=== PATIENT | female | born 1955 | race Caucasian/White ===

== ENCOUNTER → 2016-12-07 | Outpatient (CLI) | payer MEDICARE ==
[~2016-12-07] MED LIST: ABILIFY2 MG PO; ACCUPRIL TAB 5MG5 MG PO; ASPIRIN325 MG PO; CHANTIX1 EACH PO; CITALOPRAM HBR20 MG PO; EFFEXOR XR75 MG PO; IMDUR ER TAB 6060 MG PO; IPRAT-ALBUT 0.5-3 ML INH; KLONOPIN TAB 00.5 MG PO; LOPRESSOR50 MG PO; LYRICA75 MG PO; MOBIC15 MG PO; NEXIUM40 MG PO; NITROGLYCERIN0.4 MG SL; OMNICEF 300 MG300 MG PO; PRAVACHOL80 MG PO; PROAIR HFA8.5 GM INH; SYNTHROID75 MCG PO
== END ==
LOC: EMI 12-04 07:30
DX: M54.16 Radiculopathy, lumbar region (principal); M51.26 Other intervertebral disc displacement, lumbar region
CPT/HCPCS: 72148

== ENCOUNTER 2016-12-26 16:08 | Inpatient (IN) | payer MEDICARE, MEDICAID ==
[~2016-12-26] VITALS: Ht 154.9 cm; Wt 77.1 kg
[2016-12-26 18:49] LABS: HEMOGLOBIN 14.4 gm/dl (12.3-15.3); RED BLOOD COUNT 4.94 M/UL (4.00-5.10); WHITE BLOOD COUNT 6.2 K/UL (4.5-11.0)
[2016-12-26 19:37] LABS: BUN/CREATININE RATIO 28 (0-10)
[2016-12-27 05:49] LABS: HEMOGLOBIN 14.2 gm/dl (12.3-15.3); RED BLOOD COUNT 4.97 M/UL (4.00-5.10); WHITE BLOOD COUNT 6.1 K/UL (4.5-11.0)
[2016-12-27 06:09] LABS: BUN/CREATININE RATIO 38 (0-10)
[2016-12-27] MEDS ORDERED: ABILIFY2 MG PO (15:03)
[2016-12-27] MEDS ORDERED: KLONOPIN TAB 00.5 MG PO (15:03)
[2016-12-27] MEDS ORDERED: SYNTHROID75 MCG PO (15:04)
[2016-12-27] MEDS ORDERED: CITALOPRAM HBR20 MG PO (15:05)
[2016-12-27] MEDS ORDERED: NEXIUM40 MG PO (15:05)
[2016-12-27] MEDS ORDERED: EFFEXOR XR75 MG PO (15:06)
[2016-12-27] MEDS ORDERED: IMDUR ER TAB 6060 MG PO (15:06)
[2016-12-27] MEDS ORDERED: PRAVACHOL80 MG PO (15:07)
[2016-12-27] MEDS ORDERED: MOBIC15 MG PO (15:07)
[2016-12-27] MEDS ORDERED: LYRICA75 MG PO (15:07)
[2016-12-27] MEDS ORDERED: LOPRESSOR50 MG PO (15:09)
[2016-12-27] MEDS ORDERED: PROAIR HFA8.5 GM INH (15:10)
[2016-12-27] MEDS ORDERED: ASPIRIN325 MG PO (15:10)
[2016-12-27] MEDS ORDERED: NITROGLYCERIN0.4 MG SL (15:11)
[2016-12-28 06:07] LABS: HEMOGLOBIN 13.7 gm/dl (12.3-15.3); RED BLOOD COUNT 4.78 M/UL (4.00-5.10)
[2016-12-28 06:15] LABS: WHITE BLOOD COUNT 8.4 K/UL (4.5-11.0)
[2016-12-28 06:31] LABS: BUN/CREATININE RATIO 34 (0-10)
[2016-12-28] MEDS ORDERED: ACCUPRIL TAB 5MG5 MG PO (12:17)
[2016-12-28] MEDS ORDERED: OMNICEF 300 MG300 MG PO (12:18)
[2016-12-28] MEDS ORDERED: IPRAT-ALBUT 0.5-3 ML INH (13:08)
[2016-12-28] MEDS ORDERED: CHANTIX1 EACH PO (13:14)
== END 2016-12-28 11:00 | disposition home or self-care (01) | DRG 191 ==
LOC: ER1 16:08 → ZEROF 22:37 → M/S 23:33 → ZEROF 23:33 → M/S 12-27 09:39
PROVIDERS: Family Medicine; ADMIT Internal Medicine
DX: J44.0 Chronic obstructive pulmonary disease with (acute) lower respiratory infection (principal); J45.901 Unspecified asthma with (acute) exacerbation; I25.110 Atherosclerotic heart disease of native coronary artery with unstable angina pectoris; J98.11 Atelectasis; J20.9 Acute bronchitis, unspecified; I10 Essential (primary) hypertension; E11.9 Type 2 diabetes mellitus without complications; E03.9 Hypothyroidism, unspecified; G25.0 Essential tremor; E78.5 Hyperlipidemia, unspecified; K21.9 Gastro-esophageal reflux disease without esophagitis; G47.33 Obstructive sleep apnea (adult) (pediatric); M16.0 Bilateral primary osteoarthritis of hip; M17.0 Bilateral primary osteoarthritis of knee; G89.29 Other chronic pain; M54.9 Dorsalgia, unspecified; E66.9 Obesity, unspecified; F32.9 Major depressive disorder, single episode, unspecified; F41.9 Anxiety disorder, unspecified; Z95.1 Presence of aortocoronary bypass graft; Z87.891 Personal history of nicotine dependence; Z86.73 Personal history of transient ischemic attack (TIA), and cerebral infarction without residual deficits; Z68.32 Body mass index [BMI] 32.0-32.9, adult; Z79.82 Long term (current) use of aspirin; Z79.1 Long term (current) use of non-steroidal anti-inflammatories (NSAID); Z79.899 Other long term (current) drug therapy; Z88.3 Allergy status to other anti-infective agents; Z88.2 Allergy status to sulfonamides; Z90.49 Acquired absence of other specified parts of digestive tract; Z98.51 Tubal ligation status; Z98.49 Cataract extraction status, unspecified eye; Z98.890 Other specified postprocedural states; Z82.49 Family history of ischemic heart disease and other diseases of the circulatory system; Z83.3 Family history of diabetes mellitus; Z80.3 Family history of malignant neoplasm of breast
CPT/HCPCS: ECHO; 36415; 71010; 78452; 80048; 80053; 80061; 82550; 82553; 82962; 83874; 83880; 84484; 85025; 93005; 93017; 93306; 94640; 94664; 96374; 96375; 99285; A9502; G0378; J0456; J0696; J2785; J7030; J7050

== ENCOUNTER → 2020-11-22 | Outpatient (CLI) | payer MEDICARE ==
[~2020-11-22] MED LIST changes: +AMBIEN10 MG PO; +ASPIR 8181 MG PO; +AUGMENTIN 875-1 EACH PO; +AZELASTINE HCL6 ML EYEBOTH; +BACTROBAN OINT22 GM EXT; +BUSPAR 10MG10 MG PO; +EFFEXOR XR150 MG PO; -EFFEXOR XR75 MG PO; +FLEXERIL 10 MG10 MG PO; +FLOMAX 0.4 MG0.4 MG PO; +FLOMAX0.4 MG PO; +HYDROCODON-ACE1 EAC4 PO; +IBUPROFEN400 MG PO; +IBUPROFEN600 MG PO; +LYRICA150 MG PO; -LYRICA75 MG PO; +NORCO 5-325 TA1 EACH PO; +PREDNISONE DOSE PACK; +SINGULAIR10 MG PO; -SYNTHROID75 MCG PO; +SYNTHROID88 MCG PO; +TORADOL 10 MG T10 MG PO; +VITAMIN D250000 UNIT PO; +ZOFRAN ODT 4 MG4 MG SL; +ZOFRAN ODT4 MG PO
== END ==
LOC: KOH-I 09-23 13:00
DX: R91.8 Other nonspecific abnormal finding of lung field (principal); R91.1 Solitary pulmonary nodule
CPT/HCPCS: 71250

== ENCOUNTER → 2020-12-29 | Outpatient (CLI) | payer MEDICARE, OTHER | LOC: HEART 5 08:30 | DX: I20.9 Angina pectoris, unspecified (principal); I07.1 Rheumatic tricuspid insufficiency; I27.20 Pulmonary hypertension, unspecified; Z95.1 Presence of aortocoronary bypass graft | CPT/HCPCS: 93306 ==

== ENCOUNTER → 2021-01-02 | Outpatient (CLI) | payer MEDICARE, OTHER | LOC: HEART 5 08:14 | DX: I20.9 Angina pectoris, unspecified (principal) | CPT/HCPCS: 78452; A9502; J2785 ==

== ENCOUNTER 2021-02-12 19:13 | Emergency (ER) | payer MEDICARE, OTHER ==
[~2021-02-12 19:13] MED LIST changes: -FLOMAX 0.4 MG0.4 MG PO; -HYDROCODON-ACE1 EAC4 PO; -ZOFRAN ODT 4 MG4 MG SL
[2021-02-12 20:13] LABS: HEMOGLOBIN 12.5 gm/dl (12.3-15.3); RED BLOOD COUNT 5.3 M/UL (4.00-5.10); WHITE BLOOD COUNT 11.5 K/UL (4.5-11.0)
[2021-02-12 20:37] LABS: BUN/CREATININE RATIO 23 (0-10)
[2021-02-12] MEDS ORDERED: HYDROCODON-ACE1 EAC4 PO (20:59)
[2021-02-12] MEDS ORDERED: ZOFRAN ODT 4 MG4 MG SL (20:59)
[2021-02-12] MEDS ORDERED: TORADOL 10 MG T10 MG PO (20:59)
[2021-02-12] MEDS ORDERED: FLOMAX 0.4 MG0.4 MG PO (20:59)
== END 2021-02-12 21:34 | disposition home or self-care (01) ==
LOC: ER1 19:13
PROVIDERS: Emergency Medicine
DX: N13.2 Hydronephrosis with renal and ureteral calculous obstruction (principal); E11.9 Type 2 diabetes mellitus without complications; I10 Essential (primary) hypertension; F17.200 Nicotine dependence, unspecified, uncomplicated; Z87.442 Personal history of urinary calculi; Z95.1 Presence of aortocoronary bypass graft; Z90.49 Acquired absence of other specified parts of digestive tract; Z88.1 Allergy status to other antibiotic agents
CPT/HCPCS: 80053; 83690; 85025; 87086; 96374; 96375; 99284; J1885; J2270; J2405; J7030

== ENCOUNTER → 2021-04-21 | Outpatient (CLI) | payer MEDICARE, OTHER ==
[~2021-04-21] MED LIST changes: +FLOMAX 0.4 MG0.4 MG PO; +HYDROCODON-ACE1 EAC4 PO; +ZOFRAN ODT 4 MG4 MG SL
== END ==
LOC: KOH-I 10:40
DX: J44.1 Chronic obstructive pulmonary disease with (acute) exacerbation (principal)
CPT/HCPCS: 71046

== ENCOUNTER → 2021-05-25 | Outpatient (CLI) | payer MEDICARE, OTHER | LOC: KOH-I 11:12 | DX: R91.1 Solitary pulmonary nodule (principal); K44.9 Diaphragmatic hernia without obstruction or gangrene | CPT/HCPCS: 71250 ==

== ENCOUNTER → 2021-10-05 | Outpatient (CLI) | payer MEDICARE, OTHER | LOC: MAMO 14:00 | DX: Z12.31 Encounter for screening mammogram for malignant neoplasm of breast (principal) | CPT/HCPCS: 77063; 77067 ==

== ENCOUNTER → 2022-02-19 | Outpatient (CLI) | payer MEDICARE, OTHER | LOC: US 07:52 | DX: R55 Syncope and collapse (principal); G45.9 Transient cerebral ischemic attack, unspecified | CPT/HCPCS: 70551; 93880 ==

== ENCOUNTER → 2022-02-20 | Outpatient (CLI) | payer MEDICARE, OTHER | LOC: HEART 5 02-14 15:30 | DX: R55 Syncope and collapse (principal) ==

== ENCOUNTER → 2022-03-14 | Outpatient (CLI) | payer MEDICARE, OTHER | LOC: CT 13:58 | DX: R93.89 Abnormal findings on diagnostic imaging of other specified body structures (principal); E04.1 Nontoxic single thyroid nodule; I65.21 Occlusion and stenosis of right carotid artery | CPT/HCPCS: 36415; 70498; 82565; 84520; Q9967 ==

== ENCOUNTER → 2022-03-22 | Outpatient (CLI) | payer MEDICARE, OTHER | LOC: KOH-I 13:18 | DX: E04.1 Nontoxic single thyroid nodule (principal) | CPT/HCPCS: 76536 ==